=== PATIENT | male | born 1965 | race Caucasian/White ===

== ENCOUNTER 2019-11-28 11:15 | Emergency (ER) | payer OTHER, SELFPAY ==
[2019-11-28] VITALS (12 sets, daily range): BP systolic 91–144; BP diastolic 65–86; PULSE 56–83; RESP 14–18; TEMP 37.1; O2SAT 91–98; BMI 36.0
--- NOTE | 2019-11-28 11:42 | ED_ITS ---
HPI - Abdominal Pain General: Chief Complaint: Abdominal Pain Stated Complaint: RLQ pain Time Seen by Provider: 11/28/19 11:42 Source: patient Mode of arrival: ambulatory Limitations: no limitations History of Present Illness: HPI narrative: Patient is a 54-year-old male who presents to ED today with complaints of right-sided abdominal pain that initially began 3 days ago. Pain began gradually and has slowly worsened throughout that time. Patient states urine and defecation patterns have been normal. He complains of a little nausea without vomiting. Does not complain of fevers but does have chills and night sweats. Denies previous abdominal surgeries. MD elicited complaint: abdominal pain Pertinent past history: none Pain Consistency: constant Location: Periumbilical and RLQ Severity: moderate Migration to: no migration Exacerbating factors: movement Relieving factors: nothing Associated Symptoms: Reports chills and nausea; Denies bloating, change in bowel habits, change in stool character, constipation, diarrhea, dysuria, fever(s), hematochezia, syncope and vomiting Review of Systems Const: Reports: chills and night sweats; Denies: fever, body aches, fatigue or malaise Card: Denies: chest pain, palpitations, irregular heart rhythm, edema, swelling of feet/ankles, lightheadedness, syncope or pre-syncope Resp: Denies: shortness of breath or productive cough GI: Reports: abdominal pain and nausea; Denies: vomiting, diarrhea, constipation, bloating, change in bowel habits, change in stool character, blood in stool, white/light colored stool or fatty stool : Denies: flank pain, difficulty urinating, painful urination, urinary frequency or urinary urgency Musc: Denies: neck pain or back pain Physical Exam Const: COMMON NORMALS: no apparent distress, oriented x3, no limitations, alert and well nourished NUTRITIONAL APPEARANCE: obese Resp: COMMON NORMALS: normal respiratory effort and clear to auscultation bilaterally AUSCULTATION: clear to auscultation bilaterally Cardio: COMMON NORMALS: regular rate and regular rhythm RATE: regular rate RHYTHM: regular rhythm GI: COMMON NORMALS: normal to inspection, nondistended, normoactive bowel sounds, no hepatosplenomegaly and no masses PALPATION: Yes tender Details: RLQ and other (Periumbilical), Yes no hepatosplenomegaly, No rebound tenderness present and Yes other (Negative obturator, psoas, heel tap) : COMMON NORMALS: Yes no CVA tenderness BLADDER/KIDNEY EXAM: Yes no CVA tenderness Back/Pelvis: COMMON NORMALS: no CVA tenderness Neuro: COMMON NORMALS: oriented x3 SENSORIUM/ORIENTATION: Yes alert Skin: COMMON NORMALS: no rashes or lesions noted GENERAL SKIN EXAM: no rashes or lesions noted Course Consultations: Consultation #1: Dr. Kemp-general surgery at [facility] [place]-accepts patient; recommend IV zosyn and flagyl here and requests CT disc be made so he can view Vital Signs: Vital signs: Vital Signs Temperature 98.7 F 11/28/19 11:31 Pulse Rate 60 11/28/19 14:41 Respiratory Rate 16 11/28/19 14:41 Blood Pressure 122/85 11/28/19 14:41 Pulse Oximetry 97 11/28/19 14:41 MDM - Abdominal Pain MDM Narrative: Medical decision making narrative: Patient presented to ED today with complaints of 2 to 3 days worth of right lower quadrant abdominal pain. On patient's labs there is no leukocytosis or other concerning findings. Vitals have been stable throughout his stay. CT scan shows a colonic stricture with thickening and inflammatory changes proximally. Spoke to Dr. Lira who stated this patient would need a general surgery consult and probable operative management. There are no beds currently in our entire hospital therefore patient will need to be transferred. He requested [facility] as a first choice however they are also full. Patient's next choice was to go to [facility] and I did speak with them who accepted. Lab Data: Labs: Lab Results 11/28/19 11/28/19 11/28/19 Range/Units 12:38 12:38 13:11 WBC 4.5 (4.0-10.0) 10^3/ uL RBC 4.30 (4.1-5.3) 10^6/u L Hgb 13.5 (11.7-16.6) g/dL Hct 42.6 (42.0-52.0) % MCV 99.1 H (80-94) fL MCH 31.4 (28.0-34.0) pg MCHC 31.7 (30.0-36.0) g/dL RDW 13.1 (12.1-15.1) % Plt Count 207 (130-400) 10^3/c mm MPV 9.5 (7.4-10.4) fL Neut % (Auto) 63.3 % Lymph % (Auto) 24.8 % Elmore % (Auto) 8.4 % Eos % (Auto) 2.4 % Baso % (Auto) 0.7 % Neut # (Auto) 2.9 (1.8-7.7) 10^3/u L Lymph # (Auto) 1.1 (0.8-4.8) 10^3/u L Elmore # (Auto) 0.4 (0.2-0.9) 10^3/u L Eos # (Auto) 0.1 (0.0-0.8) 10^3/u L Baso # (Auto) 0.0 (0.0-0.1) 10^3/u L Nucleated RBC % (a uto) 0 % Nucleated RBCs # 0.0 /100WBC Sodium 137 (136-145) mmol/L Potassium 4.3 (3.5-5.1) mmol/L Chloride 99 (98-107) mmol/L Carbon Dioxide 28 (22-29) mmol/L Anion Gap 14.3 (5-19) BUN 13 (6-20) mg/dL Creatinine 1.3 H (0.7-1.2) mg/dL GFR Calculation 58.0 L (90-130) mL/min Glucose 100 (65-115) mg/dL Calcium 9.7 (8.5-10.5) mg/dL Total Bilirubin 0.4 (0.15-1.2) mg/dL AST 31 (0-40) U/L ALT 31 (0-41) U/L Alkaline Phosphata se 39 L (40-130) IU/L Total Protein 7.7 (6.6-8.7) g/dL Albumin 4.6 (3.5-5.2) g/dL Globulin 3.1 (1.3-4.6) g/dL Urine Color Yellow (Yellow) Urine Appearance Clear (CLEAR) Urine pH 6.5 (5-7) Ur Specific Gravit y 1.005 (1.005-1.030) Urine Protein Neg (Negative) Urine Glucose (UA) Norm (Normal) Urine Ketones Negative (Negative) Urine Occult Blood Neg (Negative) Urine Nitrate Negative (Negative) Urine Bilirubin Neg (NEGATIVE) Urine Urobilinogen Norm (Negative) mg/dL Ur Leukocyte Ling ase Negative (Negative) Imaging Data ^: CT Abd/Pel: Radiologist's impression: [facility] [address] [place] [address] CT Scan Report Signed Patient: Adam Menendez Unit #: [id number] : [id number] Age/Sex: 54 / M ADM Date: 11/28/19 Loc: ER Room/Bed: Attending Dr: Ordering Provider/Ordering MD: Elvira Damon Date of Service: 11/28/19 Procedure(s): CT abdomen pelvis w con* [id number] Accession Number(s): [id number] Report Number: [id number] WS: [id number] CT ABDOMEN AND PELVIS WITH CONTRAST HISTORY: RLQ/periumbilical pain TECHNIQUE: Imaging performed of the abdomen and pelvis with IV contrast. Single phase imaging of the abdomen. Coronal and sagittal reformats are submitted. All CT scans at [facility] u se at least one of these dose optimization techniques: automated exposure control; mA and/or kV adjustment per patient size (includes targeted exams where dose is matched to clinical indication); or iterative reconstruction. IV CONTRAST: Omnipaque 300; 95 mL IV. Oral contrast: No DLP: 1497.87 mGy-cm. COMPARISON: None available. Lower thorax: Lung bases are clear. Heart is normal size. Small hiatal hernia. Liver/biliary system: Normal size liver. There is diffuse heterogeneity of density throughout the liver consistent with hepatic steatosis. No bile duct dilatation or mass. Gallbladder: Normal. No gallstones or wall thickening. No pericholecystic fluid. Pancreas: Normal. Spleen: Normal. Adrenal glands: Normal. Right kidney: Normal size kidney with no mass. Extrarenal pelvis within normal size ureter. Left kidney: Normal size kidney with no mass or obstruction. Extrarenal pelvis with no ureteral dilatation. Aorta: Normal. Lymphadenopathy: None. Free fluid: None. GI tract: Moderate fecal retention. Significant constipation in the RIGHT colon and at the rectum. There are a few scattered distal colonic diverticula. There is some very mild stranding and inflammatory changes in the fat in the RIGHT lower quadrant. There is mild thickening and hyperemia involving the distal small bowel. There is an area of soft tissue thickening with luminal narrowing involving the distal colon. Narrowing measures 2.6 cm in length. This is the area where the largest area of inflammation. No associated soft tissue mass. Abdominal wall: Unremarkable abdominal wall. No hernia. Pelvis: No free fluid. Urinary bladder is normal. RIGHT lateral bladder diverticulum measures 12 mm. Bones: Unremarkable. CT/CT abdomen pelvis w con* [id number] IMPRESSION: 1. Distal colonic stricture near the sigmoid with adjacent pericolonic stranding. There is mild wall thickening with no discrete mass. Could be an area of peristalsis but neoplastic or postinflammatory stricture should be considered. 2. The appendix is not definitely identified. There is some mild inflammation in the RIGHT lower quadrant soft tissues but no evidence for appendicitis. 3. Diverticulosis without acute diverticulitis. 4. RIGHT colonic constipation and fecal retention. 5. Moderate hepatic steatosis. Dictated By: Lorraine Mcneill DO Signed By: Lorraine Mcneill DO Signed Date/Time: 11/28/19 1252 DD/ 1240 Discharge Plan Discharge Patient Disposition: Xfer Other Clinical Impression: Colonic stricture Condition: Stable Referrals: Glenys Smith MD [Family Provider] - Coding Level of Care Code ED Mechanical Planner for Chg Fwd Exam Problem Focused
--- NOTE | 2019-11-28 12:00 | CT_ITS ---
WS: [id number] CT ABDOMEN AND PELVIS WITH CONTRAST HISTORY: RLQ/periumbilical pain TECHNIQUE: Imaging performed of the abdomen and pelvis with IV contrast. Single phase imaging of the abdomen. Coronal and sagittal reformats are submitted. All CT scans at [facility] use at least one of these dose optimization techniques: automated exposure control; mA and/or kV adjustment per patient size (includes targeted exams where dose is matched to clinical indication); or iterativ e reconstruction. IV CONTRAST: Omnipaque 300; 95 mL IV. Oral contrast: No DLP: 1497.87 mGy-cm. COMPARISON: None available. Lower thorax: Lung bases are clear. Heart is normal size. Small hiatal hernia. Liver/biliary system: Normal size liver. There is diffuse heterogeneity of density throughout the adrián er consistent with hepatic steatosis. No bile duct dilatation or mass. Gallbladder: Normal. No gallstones or wall thickening. No pericholecystic fluid. Pancreas: Normal. Spleen: Normal. Adrenal glands: Normal. Right kidney: Normal size kidney with no mass. Extrarenal pelvis within normal size ureter. Left kidney: Normal size kidney with no mass or obstruction. Extrarenal pelvis with no ureteral dilat ation. Aorta: Normal. Lymphadenopathy: None. Free fluid: None. GI tract: Moderate fecal retention. Significant constipation in the RIGHT colon and at the rectum. Th ere are a few scattered distal colonic diverticula. There is some very mild stranding and inflammator y changes in the fat in the RIGHT lower quadrant. There is mild thickening and hyperemia involving th e distal small bowel. There is an area of soft tissue thickening with luminal narrowing involving the distal colon. Narrowing measures 2.6 cm in length. This is the area where the largest area of inflam mation. No associated soft tissue mass. Abdominal wall: Unremarkable abdominal wall. No hernia. Pelvis: No free fluid. Urinary bladder is normal. RIGHT lateral bladder diverticulum measures 12 mm. Bones: Unremarkable. CT/CT abdomen pelvis w con* [id number] IMPRESSION: 1. Distal colonic stricture near the sigmoid with adjacent pericolonic strandi ng. There is mild wall thickening with no discrete mass. Could be an area of pe ristalsis but neoplastic or postinflammatory stricture should be considered. 2. The appendix is not definitely identified. There is some mild inflammation in the RIGHT lower quadrant soft tissues but no evidence for appendicitis. 3. Diverticulosis without acute diverticulitis. 4. RIGHT colonic constipation and fecal retention. 5. Moderate hepatic steatosis.
[2019-11-28] MEDS: iohexol 300 mg/mL 100 mL Btl IV (12:23)
--- NOTE | 2019-11-28 12:35 | PC.NURSE ---
Pt given clean catch kit with instructions for voiding. Pt unable to void at this time.
[2019-11-28 13:07] LABS: Basophils % 0.7 %; Eosinophils # 0.1 10^3/uL (0.0-0.8); Eosinophils % 2.4 %; Hematocrit 42.6 % (42.0-52.0); Hemoglobin 13.5 g/dL (11.7-16.6); Lymphocytes # 1.1 10^3/uL (0.8-4.8); Lymphocytes % 24.8 %; Mean Corpuscular HGB Conc 31.7 g/dL (30.0-36.0); Mean Corpuscular Hemoglobin 31.4 pg (28.0-34.0); Mean Corpuscular Volume 99.1 fL (80-94); Mean Platelet Volume 9.5 fL (7.4-10.4); Monocytes # 0.4 10^3/uL (0.2-0.9); Monocytes % 8.4 %; Neutrophils # 2.9 10^3/uL (1.8-7.7); Neutrophils % 63.3 %; Nucleated Red Blood Cells % 0 %; Platelet Count 207 10^3/cmm (130-400); Red Cell Distribution Width 13.1 % (12.1-15.1); White Blood Count 4.5 10^3/uL (4.0-10.0)
[2019-11-28 13:17] LABS: Alanine Aminotransferase 31 U/L (0-41); Albumin Level 4.6 g/dL (3.5-5.2); Alkaline Phosphatase 39 IU/L (40-130); Anion Gap 14.3 (5-19); Aspartate Amino Transferase 31 U/L (0-40); Blood Urea Nitrogen 13 mg/dL (6-20); Calcium 9.7 mg/dL (8.5-10.5); Carbon Dioxide 28 mmol/L (22-29); Chloride 99 mmol/L (98-107); Creatinine Clr Calc Pharmacy 76.5209; Globulin 3.1 g/dL (1.3-4.6); Glucose 100 mg/dL (65-115); Potassium 4.3 mmol/L (3.5-5.1); Sodium 137 mmol/L (136-145); Total Bilirubin 0.4 mg/dL (0.15-1.2); Total Protein 7.7 g/dL (6.6-8.7)
[2019-11-28 13:43] LABS: Add Urine Microscopic? NO
[2019-11-28 14:01] LABS: Bilirubin Urine Neg (NEGATIVE); Blood Urine Neg (Negative); Glucose Urine UA Norm (Normal); Ketones Urine Negative (Negative); Leukocyte Esterase Urine Negative (Negative); Nitrate Urine Negative (Negative); Protein Urine Neg (Negative); Specific Gravity, Urine 1.005 (1.005-1.030); Urine Appearance Clear (CLEAR); Urine Color Yellow (Yellow); Urobilinogen Urine Norm (Negative); pH Urine 6.5 (5-7)
[2019-11-28] MEDS: metroNIDAZOLE IV 500 MG/100 ML PREMIX 100 MG IV (15:58)
[2019-11-28] MEDS: piperacillin-tazobactam 3.375 GM in sodium chloride 0.9% (plus) 50 ML IV (16:26)
--- NOTE | 2019-11-28 16:53 | PC.NURSE ---
[facility] ambulance arrived to transfer patient to [facility]. Per surgeon at [facility], they do not have the medical resources to care for pt d/t Factor 8 clotting disorder. [facility] pharmacy does not have the quantity of medication at this time to send with patient, so pt has been denied at [facility]. Will try to transfer pt to another facility.
[2019-11-28 17:29] LABS: INR 1.05 (0.8-1.2)
[2019-11-28 17:30] LABS: Partial Thromboplastin Time 39.2 SECONDS (23.9-36.7)
--- NOTE | 2019-11-28 20:13 | PC.NURSE ---
blood glucose checked by nurse at 2004, blood glucose value at 90 with bedside fingerstick
--- NOTE | 2019-11-28 21:06 | PC.NURSE ---
Ice chips provided to patient, while nurse was at bedside. Nurse asked patient about his pain level. Patient voiced Well, I told the other little nurse, that I was fine, you know men are stubborn, but when I cough or laugh it is a 9/10 but sitting still its about a 4/10. I was trying to tough it out but I would like something before the pain got any worse.
--- NOTE | 2019-11-28 21:43 | PC.NURSE ---
REGULATORY PROCESS MANAGER IN ROOM
[2019-11-28] MEDS: morphine 4 mg/mL SDV 1 mL 2 MG IVP (22:23)
[2019-11-28] MEDS: ondansetron 2 mg/ML SDV 2 mL 4 MG IVP (23:30)
[2019-11-28] MEDS: sodium chloride 0.9% 1,000 ML 999 ML IV (23:33)
--- NOTE | 2019-11-28 23:39 | PC.NURSE ---
BLOOD GLUCOSE TAKEN BEDSIDE BY NURSE, BG AT 100
[2019-11-28 23:42] LABS: Glucose Point of Care 100 mg/dL (70-110)
== END 2019-11-28 23:59 | disposition other institution (70) ==
PROVIDERS: Emergency Provider Physician Assistant; Family Provider Family Medicine
DX: K56.699 Other intestinal obstruction unspecified as to partial versus complete obstruction (principal); E66.9 Obesity, unspecified; Z68.36 Body mass index [BMI] 36.0-36.9, adult
CPT/HCPCS: 36415; 36416; 74177; 80053; 81003; 82962; 85025; 85610; 85730; 96360; 96365; 96366; 96367; 96375; 99284; 99285; A9270; J2270; J2405; J2543; J7030; Q9967; S0030

== ENCOUNTER 2021-07-15 12:05 | Outpatient (CLI) | payer OTHER, SELFPAY ==
[2021-07-15 12:45] VITALS: BP 118/74; PULSE 93; RESP 18; TEMP 36.7; O2SAT 93; BMI 33.1
[2021-07-15 15:00] VITALS: BP 117/82; PULSE 71; RESP 16; O2SAT 98
[2021-07-15 16:00] VITALS: BP 108/72; PULSE 55; RESP 16; TEMP 37.1; O2SAT 97
== END 2021-07-15 12:06 | disposition home or self-care (01) ==
PROVIDERS: PCP Nurse Practitioner Family; Visit Provider Nurse Practitioner Family
DX: U07.1 COVID-19 (principal)
CPT/HCPCS: 96365